=== PATIENT | female | born 1985 | race Caucasian/White ===

== ENCOUNTER 2021-06-05 18:50 | Emergency (ER) | payer OTHER ==
[~2021-06-05] VITALS: Ht 162.6 cm; Wt 114.5 kg
[2021-06-05 18:52] VITALS: BP 131/80
[2021-06-05] MEDS ORDERED: PROBCAP14 PO (19:02)
[2021-06-05] MEDS ORDERED: SYNT125T PO (19:02)
[2021-06-05] MEDS ORDERED: VYVA20CA PO (19:02)
[2021-06-05] MEDS ORDERED: IBUPROFEN 800 MG TAB PO ONE (22:55)
[2021-06-05] MEDS ORDERED: methocarbamoL 500 MG TAB PO ONE (22:55)
[2021-06-05] MEDS ORDERED: LIDOCAINE 5% (LIDODERM) PATCH TD ONE (22:55)
[2021-06-05] MEDS ORDERED: LIDO5DIS41 TOP (23:53)
[2021-06-05] MEDS ORDERED: IBUP80TA PO (23:53)
[2021-06-05] MEDS ORDERED: METH-1164 PO (23:54)
[2021-06-06] MEDS ORDERED: **NOTE PATIENT COMMENT** MISC XX SCH (21:00)
== END 2021-06-06 00:05 | disposition home or self-care (01) ==
LOC: M ED 18:50
DX: M54.9 Dorsalgia, unspecified (principal); F90.9 Attention-deficit hyperactivity disorder, unspecified type; E03.9 Hypothyroidism, unspecified

== ENCOUNTER → 2021-11-01 | Outpatient (CLI) | payer OTHER ==
[~2021-11-01] MED LIST: IBUP80TA PO; LIDO5DIS41 TOP; METH-1164 PO; PROBCAP14 PO; SYNT125T PO; VYVA20CA PO
== END ==
LOC: M RAD 10:44
PROVIDERS: ATTEND Physician Assistant
DX: M79.672 Pain in left foot (principal); M19.072 Primary osteoarthritis, left ankle and foot

== ENCOUNTER → 2022-05-16 | Outpatient (REF) | payer OTHER ==
[2022-05-16 12:40] LABS: ALBUMIN 3.5 G/DL (3.2-5.2); ALKALINE PHOSPHATASE 106 U/L (46-116); ALT/SGPT 17 U/L (7.0-40); AST/SGOT 19 U/L (<34); BILIRUBIN,TOTAL 0.2 MG/DL (0.3-1.2); BLOOD UREA NITROGEN 8 MG/DL (9-23); CALCIUM LEVEL 8.9 MG/DL (8.5-10.1); CARBON DIOXIDE LEVEL 27 MMOL/L (20-31); CHLORIDE LEVEL 104 MMOL/L (98-107); CHOLESTEROL LEVEL 164 MG/DL (<200); GLOMERULAR FILTRATION RATE > 60.0 (>60); GLUCOSE, FASTING 95 MG/DL (60-100); HDL CHOLESTEROL 54.5 MG/DL (>40); LDL CHOLESTEROL 87.1 MG/DL (<100); NON-HDL-C 110 MG/DL; POTASSIUM SERUM 4.7 MMOL/L (3.5-5.1); SODIUM LEVEL 139 MMOL/L (136-145); TOTAL PROTEIN 7.4 G/DL (5.7-8.2); TRIGLYCERIDES LEVEL 112 MG/DL (<150)
[2022-05-16 12:41] LABS: THYROID STIMULATING HORMONE 2.436 uIU/ML (0.55-4.78)
== END ==
LOC: M LAB REF 11:38
PROVIDERS: ATTEND Family Medicine Addiction Medicine
DX: E03.9 Hypothyroidism, unspecified (principal)

== ENCOUNTER → 2022-08-07 | Outpatient (REF) | payer OTHER ==
[2022-08-07 13:40] LABS: ALBUMIN 3.5 G/DL (3.2-5.2); ALKALINE PHOSPHATASE 111 U/L (46-116); ALT/SGPT 14 U/L (7.0-40); AST/SGOT 12 U/L (<34); BILIRUBIN,TOTAL 0.2 MG/DL (0.3-1.2); BLOOD UREA NITROGEN 15 MG/DL (9-23); CALCIUM LEVEL 9.1 MG/DL (8.5-10.1); CARBON DIOXIDE LEVEL 29 MMOL/L (20-31); CHLORIDE LEVEL 104 MMOL/L (98-107); CHOLESTEROL LEVEL 161 MG/DL (<200); CHOLESTEROL RISK RATIO 2.78 (<5); CREATININE FOR GFR 0.84 MG/DL (0.55-1.30); GLOMERULAR FILTRATION RATE > 60.0 (>60); GLUCOSE, FASTING 90 MG/DL (60-100); HDL CHOLESTEROL 57.8 MG/DL (>40); NON-HDL-C 103.2 MG/DL; POTASSIUM SERUM 4.9 MMOL/L (3.5-5.1); SODIUM LEVEL 139 MMOL/L (136-145); TOTAL PROTEIN 7.2 G/DL (5.7-8.2); TRIGLYCERIDES LEVEL 156 MG/DL (<150)
[2022-08-07 13:42] LABS: THYROID STIMULATING HORMONE 1.965 uIU/ML (0.55-4.78)
[2022-08-08 10:24] LABS: THYROXINE (T4) 10.3 UG/DL (4.5-10.9)
[2022-08-08 10:25] LABS: FREE THYROXINE INDEX 3.5 % (1.3-4.8); T UPTAKE 33.7 % (22.5-37.0)
== END ==
LOC: M LAB REF 12:12
PROVIDERS: ATTEND Family Medicine Addiction Medicine
DX: E03.9 Hypothyroidism, unspecified (principal)